=== PATIENT | female | born 2000 | race Caucasian/White ===

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

== ENCOUNTER 2023-07-08 21:06 | Emergency (ER) | payer MEDICAID, SELFPAY ==
[2023-07-08 21:07] VITALS: BP 137/107; PULSE 113; RESP 20; TEMP 36.4; O2SAT 98; BMI 23.6
--- NOTE | 2023-07-08 21:12 | EKG12_ITS ---
Test Reason : [facility] [place] Pressure : / mmHG Vent. Rate : 078 BPM Atrial Rate : 078 BPM P-R Int : 196 ms QRS Dur : 092 ms QT Int : 410 ms P-R-T Axes : 050 037 040 degrees QTc Int : 467 ms Normal sinus rhythm with sinus arrhythmia Normal ECG Confirmed by Joe Pinto (1966), managing editor ENMANUEL HULL ([id number]) on 07/10/2023 10:54:35 AM Referred By: Confirmed By:Joe Pinto
--- NOTE | 2023-07-08 21:12 | CT_ITS ---
INDICATION: Change in Mental Status EXAMINATION: CT BRAIN - CT Head or Brain W/O Contrast Injection TECHNIQUE: Serial CT axial images were obtained of the head without intravenous contrast. A radiation dose optimization technique was used for this scan. COMPARISON: None. Findings: Serial CT axial images of the head without contrast. BRAIN PARENCHYMA: Normal lama-white matter differentiation. No evidence of intraparenchymal hemorrhage or hyperattenuating extra-axial fluid collection. BONES: Frontoethmoid sinus mucosal thickening. Bilateral maxillary sinus nodular mucosal thickening. Left maxillary dental root lucencies consistent with dental root abscess formation. SCALP/REMAINING SOFT TISSUES: Unremarkable. ASPECTS Score for Acute Strokes, if applicable: 10 CT/Brain/Head without Contrast IMPRESSION: No acute intracranial hemorrhage in this noncontrast head CT. Left maxillary dental root lucencies consistent with dental root abscess formation. Sinus disease. Electronically Signed: Carlo Sanderson MD at 1:30 EDT ,
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
[2023-07-08 21:36] LABS: Absolute Lymphocyte Count 0.88 X10^3/uL (0.83-4.51); Absolute Neutrophil Count 15.2 X10^3/uL (2.0-7.7); Basophil# 0.07 X10^3/uL; Basophil% 0.4 % (0-1); Eosinophil# 0.01 X10^3/uL; Eosinophils% 0.1 % (0-5); Hematocrit 42.7 % (37-47); Hemoglobin 13.6 g/dL (12.0-15.0); Lymphocyte # 0.88 X10^3/ul (0.83-4.51); Lymphocyte % 5.2 % (19-41); Mean Corp Hgb Conc 31.9 g/dL (32-36); Mean Corpuscular Hgb 25.5 pg (27.0-32.0); Mean Corpuscular Volume 80.1 fL (81-99); Mean Platelet Vol. 9.9 fl (6.2-12.0); Monocyte# 0.74 X10^3/uL; Monocyte% 4.4 % (0-10); NRBC Flagged by Analyzer 0 % (0-5); Neutrophil # 15.24 X10^3/uL (2.7-7.7); Neutrophil % 89.5 % (47-70); Platelet Count 429 K/mm3 (150-450); RBC Distribution Width CV 16.2 % (11.6-14.6); RBC Distribution Width SD 46.6 fl (35.1-43.9); Red Blood Count 5.33 M/mm3 (4.2-5.4)
[2023-07-08] MEDS: Haloperidol Lactate 5 MG/ML Vial 10 MG IM (21:36)
[2023-07-08] MEDS: DiphenhydrAMINE 50 MG/ML Syringe 25 MG IM (21:36)
[2023-07-08] MEDS: LORazepam 2 MG/ML Syringe IM (21:40)
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
[2023-07-08 21:47] LABS: Alcohol, Blood (Medical)-Serum < 3.0 mg/dL; Internal QC Validated? YES +Cl - CLEAR BKGD; Pregnancy, Serum, hCG Quali. NEGATIVE Negative; Record Kit Lot#, Serum Preg. 718086
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
[2023-07-08 21:51] LABS: ALB/GLOB Ratio 1.1 RATIO (0.9-2.4); AST(SGOT) 17 U/L (15-37); Alanine Aminotransfer ALT/SGPT 19 U/L (13-56); Albumin, Serum 4.6 g/dL (3.2-5.0); Alkaline Phosphatase 101 U/L (45-117); Anion Gap 13 (5-15); BUN 10 mg/dL (7-18); BUN/Creat Ratio 10.4 RATIO (10-20); CPK Total, Creatine Kinase 180 U/L (26-192); Calcium,Total 9.6 mg/dL (8.5-10.1); Chloride 110 mmol/L (98-107); Creatinine, Serum 0.96 mg/dL (0.55-1.02); EST Glomerular Filtration Rate 78 mL/min (>60); Est Glom Filt Rate - Afr Amer 94 mL/min (>60); Estimated Creatinine Clearance 87.51 ml/min; Globulin 4.2 g/dL (2.2-4.2); Glucose 139 mg/dL (74-106); Potassium 3.5 mmol/L (3.5-5.1); Protein, Total 8.8 g/dL (6.4-8.2); Sodium Level 142 mmol/L (136-145)
[2023-07-08 21:56] LABS: Color, Urine Yellow (Yellow); Glucose, Dipstick Normal (Normal); Leukocyte Esterase-Dipstick 500 /ul (Negative); Nitrite-Dipstick Negative (Negative); Occult Blood-Urine 250 /ul (Negative); Protein-Dipstick 100 mg/dl (Negative); Specific Gravity, Urine 1.025 (1.002-1.030); Urine Bilirubin Dipstick 1 mg/dL (Negative); Urine Clarity Sl. Cloudy (Clear); Urine Urobilinogen 1 mg/dl (Normal)
[2023-07-08 21:58] LABS: Ketone-Dipstick 150 mg/dl (Negative)
[2023-07-08 22:06] LABS: Bacteria 1+ /hpf (None Seen); Mucous, Urine 2+ /hpf (<or=2+); Red Blood Cells-Urine 10-25 SEEN /hpf (0-5); Squamous Epithelial Cells - UA 0-5 SEEN /hpf (5-10); White Blood Cells 10-25 SEEN /hpf (0-5)
[2023-07-08 22:07] VITALS: BP 144/91; PULSE 107; RESP 20; O2SAT 97
[2023-07-08 22:27] LABS: Amphetamine Urine VISTA NEGATIVE (<1000 ng/mL); Barbiturate Urine VISTA NEGATIVE (< 200 ng/mL); Benzodiazepine Urine VISTA NEGATIVE (< 200 ng/mL); Cocaine Urine VISTA NEGATIVE (< 300 ng/mL); Ecstacy Urine VISTA NEGATIVE (< 500 ng/mL); Methadone Urine VISTA NEGATIVE (< 300 ng/mL); PCP Urine VISTA NEGATIVE (< 25 ng/mL); THC Urine VISTA POSITIVE (< 50 ng/mL); Vista UDS pH Range 6
[2023-07-08 23:00] VITALS: BP 121/87; PULSE 94; RESP 20; O2SAT 97
[2023-07-08] MEDS: LORazepam 2 MG/ML Syringe 1 MG IV (23:33)
[2023-07-08] MEDS: 0.9% Normal Saline (1000mL) 1,000 ML 999 ML IV (23:35)
[2023-07-09] VITALS (8 sets, daily range): BP systolic 106–139; BP diastolic 54–88; PULSE 82–116; RESP 14–18; TEMP 36.6; O2SAT 95–99
[2023-07-09] MEDS: Ceftriaxone 1 GM/50 ML BAG IV (00:09)
--- NOTE | 2023-07-09 00:15 | RAD_ITS ---
INDICATION: altered mental status EXAMINATION/TECHNIQUE: X-RAY - XR Chest 1 View COMPARISON: None. Findings: Single frontal view of the chest. LUNG PARENCHYMA: No acute focal airspace disease or mass lesion. PLEURA: No pleural effusion. No pneumothorax. HEART/GREAT VESSELS: Cardiomediastinal silhouette is unremarkable. BONES: Osseous structures are unremarkable for age. RAD/Chest 1 View (Portable) IMPRESSION: Chest with no acute disease. Electronically Signed: Carlo Sanderson MD at 2:09 EDT ,
[2023-07-09 00:28] LABS: Thyroid Stim Hormone (TSH) 1.66 uIU/mL (0.358-3.74)
[2023-07-09 06:47] LABS: Anion Gap 7 (5-15); BUN 10 mg/dL (7-18); BUN/Creat Ratio 18.9 RATIO (10-20); Calcium,Total 8.2 mg/dL (8.5-10.1); Chloride 114 mmol/L (98-107); Creatinine, Serum 0.53 mg/dL (0.55-1.02); Estimated Creatinine Clearance 158.51 ml/min; Glucose 83 mg/dL (74-106); Potassium 3.2 mmol/L (3.5-5.1); Sodium Level 143 mmol/L (136-145)
--- NOTE | 2023-07-09 07:08 | ED.RN ---
breathing even and unlabored. pt groggy not awake enough to swallow pills. dr armenta states observe until more awake, let her sleep and obtain vs every 8 hours. no distress noted.
[2023-07-09 07:36] LABS: EST Glomerular Filtration Rate 156 mL/min (>60); Est Glom Filt Rate - Afr Amer 189 mL/min (>60)
--- NOTE | 2023-07-09 10:44 | ED.RN ---
pt awake, cooperative, able to carry on a sensible conversation. given breakfast and called crisis to let them know shes ready to talk with them.
--- NOTE | 2023-07-09 10:46 | ED.RN ---
Called crisis. Karla answered and stated that it would be the next shift.
[2023-07-09] MEDS: Potassium Chloride Oral Tablet 20 MEQ PO (10:51)
--- NOTE | 2023-07-09 10:56 | ED.RN ---
appropriate and cooperative. apologetic for behavior last night repeatedly. reassured pt that the apology was appriciated and that it was a new day start from here and go forward.
--- NOTE | 2023-07-09 12:55 | ED.RN ---
Pt referred to [facility] and [facility]. Karla going off and Teri coming on.
--- NOTE | 2023-07-09 14:35 | ED.RN ---
This RN has attempted to call report to [facility] 3 times now and has not gotten an answer.
== END 2023-07-09 14:35 ==
LOC: ED 21:44
PROVIDERS: Emergency Medicine; Emergency Provider Emergency Medicine; PCP Pediatrics; Visit Provider Emergency Medicine
DX: F23 Brief psychotic disorder (principal); N39.0 Urinary tract infection, site not specified; R41.82 Altered mental status, unspecified; K04.7 Periapical abscess without sinus; Z79.899 Other long term (current) drug therapy
CPT/HCPCS: 70450; 71045; 80048; 80053; 80307; 80320; 81001; 82550; 84443; 84703; 85025; 87077; 87086; 87088; 87186; 93005; 96365; 96372; 96375; 99285; J7030; A4216; G0480